=== PATIENT | female | born 1995 | race Hispanic/Latino ===

== ENCOUNTER 2021-03-11 19:14 | Emergency (ER) | payer SELFPAY ==
[~2021-03-11] VITALS: Ht 149.9 cm; Wt 68.0 kg
[2021-03-11] MEDS ORDERED: ONDANSETRON HCL INJ 2MG/ML 2ML 2 MG/ML VIAL IV STA (19:49)
[2021-03-11 20:09] LABS: BASOPHILS % 0.4 % (0.0-1.0); EOSINOPHILS % 0.3 % (0.0-6.0); HEMATOCRIT 35.6 % (34.2-44.1); LYMPHOCYTES # (AUTO) 1.5 (1.0-3.2); LYMPHOCYTES % 14.9 % (18.0-39.1); MEAN CORPUSCULAR HEMOGLOBIN 30.5 pg (28-32); MEAN CORPUSCULAR HGB CONC 33.7 g/dL (31-35); MEAN CORPUSCULAR VOLUME 90.4 fL (81-99); MONOCYTES # (AUTO) 0.9 (0.2-0.8); MONOCYTES % 8.3 % (4.4-11.3); NEUTROPHILS # (AUTO) 7.8 (2.1-6.9); NEUTROPHILS % 75.7 % (38.7-80.0); PLATELET COUNT 223 x10e3/uL (140-360); RED BLOOD COUNT 3.94 x10e6/uL (3.6-5.1)
[2021-03-11 20:22] LABS: ANION GAP 14.7 mmol/L (8-16); CALCIUM 8.9 mg/dL (8.4-10.2); CREATININE, SERUM 0.54 mg/dL (0.57-1.11)
[2021-03-11 20:30] LABS: POTASSIUM 2.7 mmol/L (3.5-5.1)
[2021-03-11] MEDS ORDERED: POTASSIUM CHLORIDE 20 MEQ TAB CR PO STA (20:30)
[2021-03-11 21:32] LABS: CLARITY,URINE SL CLOUDY (CLEAR); COLOR,URINE YELLOW (YELLOW); KETONES,URINE 2+ (NEGATIVE); LEUKOCYTE ESTERASE ,URINE TRACE (NEGATIVE); NITRITE,URINE NEGATIVE (NEGATIVE); PROTEIN,URINE DIPSTICK NEGATIVE (NEGATIVE); URINE UROBILINOGEN 1 mg/dL (0.2 - 1)
[2021-03-11 21:41] LABS: BACTERIA,URINE FEW /HPF; EPITHELIAL CELLS,URINE RARE /LPF; RBC,URINE 0-5 /HPF (0-5); WBC,URINE (MAN) 0-5 /HPF (0-5)
[2021-03-11 21:42] LABS: AMORPHOUS SEDIMENT,URINE MANY (FEW)
== END 2021-03-11 22:46 | disposition home or self-care (01) ==
LOC: ER 19:50
DX: O21.2 Late vomiting of pregnancy (principal); E87.6 Hypokalemia
CPT/HCPCS: 36415; 80048; 81001; 85025; 99284; J2405